=== PATIENT | female | born 2000 | race Caucasian/White ===

== ENCOUNTER 2023-11-20 13:21 | Outpatient (CLI) | payer OTHER, SELFPAY ==
[2023-11-20 19:37] LABS: Chlamydia DNA Amplified* NOT DETECTED (No Detected); GC DNA Amplified* NOT DETECTED (No Detected)
== END 2023-11-20 13:22 | disposition home or self-care (01) ==
PROVIDERS: Visit Provider Obstetrics & Gynecology
DX: Z00.00 Encounter for general adult medical examination without abnormal findings (principal); Z11.3 Encounter for screening for infections with a predominantly sexual mode of transmission; Z13.1 Encounter for screening for diabetes mellitus
CPT/HCPCS: 82310; 87491; 87591

== ENCOUNTER 2024-12-17 09:36 | Outpatient (CLI) | payer OTHER, SELFPAY | END 2024-12-17 09:37 | disposition home or self-care (01) | PROVIDERS: Visit Provider Obstetrics & Gynecology | DX: Z00.00 Encounter for general adult medical examination without abnormal findings (principal); R73.03 Prediabetes; Z83.41 Family history of multiple endocrine neoplasia [MEN] syndrome; Z11.3 Encounter for screening for infections with a predominantly sexual mode of transmission | CPT/HCPCS: 80061; 82310; 87491; 87591 ==